=== PATIENT | female | born 1970 ===

== ENCOUNTER 2017-10-06 15:21 | Outpatient (CLI) | payer OTHER ==
[~2017-10-06] VITALS: Ht 167.6 cm; Wt 112.5 kg
== END 2017-10-06 15:35 | disposition home or self-care (01) ==
LOC: OFIC 805 15:21
DX: H60.8X1 Other otitis externa, right ear (principal)

== ENCOUNTER 2017-10-13 11:02 | Outpatient (CLI) | payer OTHER ==
[~2017-10-13] VITALS: Ht 152.4 cm; Wt 112.5 kg
== END 2017-10-13 11:15 | disposition home or self-care (01) ==
LOC: OFIC 805 11:02
DX: J31.1 Chronic nasopharyngitis (principal); H92.01 Otalgia, right ear; H60.91 Unspecified otitis externa, right ear

== ENCOUNTER 2017-10-27 10:24 | Outpatient (CLI) | payer OTHER ==
[~2017-10-27] VITALS: Ht 152.4 cm; Wt 112.5 kg
== END 2017-10-27 10:45 | disposition home or self-care (01) ==
LOC: OFIC 805 10:24
DX: H60.8X1 Other otitis externa, right ear (principal); H92.01 Otalgia, right ear

== ENCOUNTER → 2017-12-15 | Emergency (ER) | payer OTHER ==
[~2017-12-15] VITALS: Ht 167.6 cm; Wt 112.5 kg
[~2017-12-15] MED LIST: BUTALB-ASPIRIN1 EACH; KETO10TA2 PO
== END | disposition home or self-care (01) ==
LOC: ER 23:32
DX: G43.809 Other migraine, not intractable, without status migrainosus (principal)